=== PATIENT | male | born 1970 | race Caucasian/White ===

== ENCOUNTER 2017-04-28 20:50 | Observation (INO) | payer OTHER ==
[~2017-04-28] VITALS: Ht 172.7 cm; Wt 102.9 kg
[~2017-04-28 20:50] MED LIST: ADVIL,NUPRIN,M200 MG PO; ATENOLOL25 MG PO; ATIVAN1 MG PO; BENADRYL25 MG PO; BENADRYL50 MG PO; BUSPAR15 MG PO; BUSPIRONE HCL10 MG PO; CLONAZEPAM0.5 MG PO; COGENTIN0.5 MG PO; EFFEXOR75 MG PO; EXCEDRIN EXTRA1 EACH PO; FIBER1 GM PO; FLUOXETINE HCL20 MG PO; HYDROCORTISON28.4 GM TP; INDERAL40 MG PO; KLONOPIN0.5 M1 PO; METOPROLOL SUCC50 MG PO; NORVASC10 MG PO; PERPHENAZINE16 MG PO; VENTOLIN HFA18 GM IH; ZOCOR20 MG PO
[2017-04-28 21:20] LABS: HEMATOCRIT 42.2 % (38.0-50.0); MCH 30.2 PG (29.0-34.0); MCHC 35.3 G/DL (30.0-36.0); MCV 85.4 FL (86-99); MEAN PLAT.VOLUME 8.7 uM^3 (9.0-12.4); PLATELET COUNT 241 K/uL (156-360); RBC DIS.WIDTH-CV 12.8 % (11.8-14.6); RBC DIS.WIDTH-SD 39.6 % (39-53); RED BLOOD COUNT 4.94 M/uL (4.00-5.50); WHITE BLOOD COUNT 10.6 K/uL (4.1-10.2)
[2017-04-28 21:31] LABS: CHLORIDE 104 mEq/L (99-109); POTASSIUM 3.2 mEq/L (3.7-5.4); SODIUM 139 mEq/L (136-147)
[2017-04-28 21:33] LABS: GLUCOSE 107 mg/dL (70-99)
[2017-04-28 21:35] LABS: ANION GAP 13 MEQ/L (2-14)
[2017-04-28 21:37] LABS: GFR ESTIMATE (CALCULATED) > 59 mL/min/
[2017-04-28 21:38] LABS: UREA NITROGEN (BUN) 10 mg/dL (9-23)
[2017-04-28 21:42] LABS: TROP-I INTERPRETATION NEGATIVE; TROPONIN-I < 0.01 ng/mL (0.0-0.30)
[2017-04-28] MEDS ORDERED: ADVIL200 MG PO (22:23)
[2017-04-28] MEDS ORDERED: LITE COAT ASPI325 M1 PO (22:24)
[2017-04-28] MEDS ORDERED: FISH OIL 1,0001 EAC7 PO (22:24)
[2017-04-29 00:05] LABS: TOTAL BILIRUBIN 0.3 mg/dL (0.0-1.0)
[2017-04-29 00:06] LABS: ALKALINE PHOSPHATASE 59 IU/L (3-129)
[2017-04-29 00:08] LABS: DIRECT BILIRUBIN 0.1 mg/dL (0.0-0.3)
[2017-04-29 00:30] VITALS: BP 136/95
[2017-04-29 01:48] LABS: ADD MIUA? NO; BILIRUBIN NEGATIVE; BLOOD NEGATIVE; COLOR YELLOW ((YELLOW)); GLUCOSE (STRIP) NEGATIVE; KETONES NEGATIVE; LEUKOCYTES NEGATIVE; NITRITE NEGATIVE; PROTEIN (STRIP) NEGATIVE; UCUL ADDED? NO; UROBILINOGEN 0.2 MG/DL (0.2-1.0)
[2017-04-29 02:05] LABS: AMPHETAMINES QUANT VALUE 0 NG/ML; BARBITUATES QUANT VALUE 0 NG/ML; BENZODIAZEPINES QUANT VALUE 0 NG/ML; BENZODIAZEPINES, URINE SCREEN Negative (200 ng/mL); MARIJUANA QUANT VALUE 0 NG/ML; OPIATES QUANTITATIVE VALUE 0 NG/ML; PHENCYCLIDINE QUANT VALUE 0 NG/ML
[2017-04-29 04:00] VITALS: BP 138/68
[2017-04-29 04:09] LABS: TROP-I INTERPRETATION NEGATIVE; TROPONIN-I < 0.01 ng/mL (0.0-0.30)
[2017-04-29 04:38] LABS: HDL CHOLESTEROL 28 MG/DL (Desirable>=40); LDL CHOLESTEROL 162 mg/dL (Desirable<100); NON-HDL CHOLESTEROL 228 mg/dL (Desirable<160); TOTAL CHOLESTEROL 256 mg/dL (Desirable<200); TRIGLYCERIDES 331 MG/DL (Normal: <150)
[2017-04-29 08:07] VITALS: BP 123/80
[2017-04-29 11:20] LABS: POTASSIUM 4.3 MEQ/L (3.7-5.4)
[2017-04-29 11:22] LABS: TROP-I INTERPRETATION NEGATIVE; TROPONIN-I 0.01 ng/mL (0.0-0.30)
[2017-04-29 11:45] VITALS: BP 126/84
[2017-04-29] MEDS ORDERED: FAMOTIDINE20 MG PO (13:36)
[2017-04-29] MEDS ORDERED: LOPRESSOR25 MG PO (13:36)
[2017-04-29] MEDS ORDERED: AMLODIPINE BESY10 MG PO (13:36)
[2017-04-29] MEDS ORDERED: ZOCOR20 MG PO (13:42)
== END 2017-04-29 15:18 | disposition home or self-care (01) ==
LOC: EME 20:50 → 5WEST 23:46 → EDOF 23:46 → ENRESERV 23:48 → 5WEST 04-29 00:18
PROVIDERS: Hospitalist; Physician Assistant Medical
DX: R07.9 Chest pain, unspecified (principal); E87.6 Hypokalemia; E78.5 Hyperlipidemia, unspecified; I10 Essential (primary) hypertension; E66.9 Obesity, unspecified; Z68.35 Body mass index [BMI] 35.0-35.9, adult; E78.2 Mixed hyperlipidemia; F17.200 Nicotine dependence, unspecified, uncomplicated; Z82.49 Family history of ischemic heart disease and other diseases of the circulatory system; F41.1 Generalized anxiety disorder; F32.9 Major depressive disorder, single episode, unspecified; K21.9 Gastro-esophageal reflux disease without esophagitis; G47.00 Insomnia, unspecified; Z87.898 Personal history of other specified conditions; J45.909 Unspecified asthma, uncomplicated; Z81.8 Family history of other mental and behavioral disorders
CPT/HCPCS: 71020; 80048; 80061; 80076; 80306 90; 81003; 83735; 84132; 84484; 85027; 93005; 99202; 99281; 99285; G0378

== ENCOUNTER 2017-11-03 09:59 | Emergency (ER) | payer BC ==
[~2017-11-03] VITALS: Ht 170.2 cm; Wt 101.5 kg
[~2017-11-03 09:59] MED LIST changes: +ADVIL200 MG PO; +AMLODIPINE BESY10 MG PO; +FAMOTIDINE20 MG PO; +FISH OIL 1,0001 EAC7 PO; +LITE COAT ASPI325 M1 PO; +LOPRESSOR25 MG PO
[2017-11-03 11:07] LABS: HEMATOCRIT 44.7 % (38.0-50.0); HEMOGLOBIN 15.9 G/DL (12.5-16.6); MCH 30.3 PG (29.0-34.0); MCHC 35.6 G/DL (30.0-36.0); MCV 85.3 FL (86-99); PLATELET COUNT 316 K/uL (156-360); RBC DIS.WIDTH-CV 13.2 % (11.8-14.6); RBC DIS.WIDTH-SD 41.2 % (39-53); RED BLOOD COUNT 5.24 M/uL (4.00-5.50); WHITE BLOOD COUNT 14.2 K/uL (4.1-10.2)
[2017-11-03 11:10] LABS: AMPHETAMINE NEGATIVE (500 ng/mL); BARBITURATES NEGATIVE (200 ng/mL); BENZODIAZEPINES NEGATIVE (150 ng/mL); BUPRENORPHINE NEGATIVE (10 ng/mL); COCAINE NEGATIVE (150 ng/mL); METHADONE NEGATIVE (200 ng/mL); METHAMPHETAMINE NEGATIVE (500 ng/mL); OPIATES (MORPHINE) NEGATIVE (100 ng/mL); OXYCODONE NEGATIVE (100 ng/mL); PHENCYCLIDINE NEGATIVE (25 ng/mL); PROPOXYPHENE NEGATIVE (300 ng/mL); THC CANNABINOIDS NEGATIVE (50 ng/mL); TRICYCLIC ANTIDEPRESSANTS NEGATIVE (300 ng/mL)
[2017-11-03 11:24] LABS: CHLORIDE 106 mEq/L (99-109); POTASSIUM 4.2 mEq/L (3.7-5.4); SODIUM 137 mEq/L (136-147)
[2017-11-03 11:25] LABS: GLUCOSE 96 mg/dL (70-99)
[2017-11-03 11:29] LABS: CREATININE 0.8 mg/dL (0.6-1.3); GFR ESTIMATE (CALCULATED) > 59 mL/min/ (58.99-99999); SERUM ETHYL ALCOHOL < 10 mg/dL
[2017-11-03 11:30] LABS: UREA NITROGEN (BUN) 10 mg/dL (9-23)
[2017-11-03 11:35] LABS: TROP-I INTERPRETATION NEGATIVE; TROPONIN-I < 0.01 ng/mL (0.0-0.30)
[2017-11-03 15:36] VITALS: BP 120/80
== END 2017-11-03 15:38 ==
LOC: EME 09:59
PROVIDERS: Physician Assistant
DX: F31.81 Bipolar II disorder (principal); R45.851 Suicidal ideations; F41.9 Anxiety disorder, unspecified; R07.9 Chest pain, unspecified; J45.909 Unspecified asthma, uncomplicated; I10 Essential (primary) hypertension; F17.200 Nicotine dependence, unspecified, uncomplicated
CPT/HCPCS: 71046; 80048; 84484; 85027; 90837; 93005; 99281; 99285; G0480

== ENCOUNTER 2018-05-01 14:53 | Emergency (ER) | payer OTHER ==
[~2018-05-01] VITALS: Ht 170.2 cm; Wt 104.1 kg
[2018-05-01] MEDS ORDERED: LEXAPRO20 MG PO (15:53)
[2018-05-01] MEDS ORDERED: ATIVAN0.5 MG PO (15:53)
[2018-05-01 16:39] VITALS: BP 147/90
== END 2018-05-01 16:20 | disposition home or self-care (01) ==
LOC: EME 14:53
DX: Z76.0 Encounter for issue of repeat prescription (principal); F41.9 Anxiety disorder, unspecified; I10 Essential (primary) hypertension; J45.909 Unspecified asthma, uncomplicated; F31.9 Bipolar disorder, unspecified; F17.200 Nicotine dependence, unspecified, uncomplicated; Z79.82 Long term (current) use of aspirin; Z88.8 Allergy status to other drugs, medicaments and biological substances
CPT/HCPCS: 99281; 99283